=== PATIENT | female | born 1945 | race Caucasian/White ===

== ENCOUNTER 2017-04-30 09:26 | Emergency (ER) | payer MEDICARE, MEDICAID ==
[~2017-04-30] VITALS: Ht 160 cm; Wt 125.0 kg
[~2017-04-30 09:26] MED LIST: ASPI-496 PO; CHOL20003 PO; CRANBERRY PO; FLUO40CA2 PO; HYDR-3240 PO; LACT1CAP37 PO; LEVO100T5 PO; LISI-170 PO; LOSA1TAB16 PO; NITR100C56 PO; OMEP40CA6 PO; TRAZ100T15 PO; TRAZ50TA18 PO; TURM500C7 PO; VITA1TAB19 PO
[2017-04-30] MEDS ORDERED: [UNRECOGNIZED DRUG - CODE] PO (10:11)
[2017-04-30 11:51] VITALS: BP 133/46
== END 2017-04-30 12:07 | disposition home or self-care (01) ==
LOC: ED 10:19
DX: S42.202A Unspecified fracture of upper end of left humerus, initial encounter for closed fracture (principal); I10 Essential (primary) hypertension; Z90.49 Acquired absence of other specified parts of digestive tract; W18.30XA Fall on same level, unspecified, initial encounter; Y93.89 Activity, other specified; Y99.8 Other external cause status; Y92.410 Unspecified street and highway as the place of occurrence of the external cause

== ENCOUNTER 2017-11-30 21:32 | Inpatient (IN) | payer MEDICARE, MEDICAID ==
[~2017-11-30] VITALS: Ht 157.5 cm; Wt 124.1 kg
[~2017-11-30 21:32] MED LIST changes: +CHOL2000 PO; -CHOL20003 PO; +IBUP100O32 PO; -LOSA1TAB16 PO; +LOSA1TAB19 PO
[2017-11-30] MEDS ORDERED: MORPHINE SULFATE 4 MG/ML, 1ML IVPush PRN (22:30)
[2017-11-30] MEDS ORDERED: SODIUM CHLORIDE FLUSH 10ML SYR IVF ONE (22:30)
[2017-11-30] MEDS ORDERED: ONDANSETRON 2MG/ML, 2ML IVPush ONE (22:30)
[2017-11-30] MEDS ORDERED: ONDANSETRON 2MG/ML, 2ML ONE (22:33)
[2017-11-30] MEDS ORDERED: MORPHINE SULFATE 4 MG/ML, 1ML ONE (22:33)
[2017-11-30 22:42] LABS: MICROSCOPIC INDICATED
[2017-11-30 22:47] LABS: CULTURE INDICATED? NO
[2017-11-30 22:49] LABS: BASOPHILS # (AUTO) 0.07 x10^3/uL (0-0.1); BASOPHILS % (AUTO) 1 % (0-1); EOSINOPHILS # (AUTO) 0.04 x10^3/uL (0-0.4); EOSINOPHILS % (AUTO) 0 % (1-7); LYMPHOCYTES # (AUTO) 2.53 x10^3/uL (1-3.4); LYMPHOCYTES % (AUTO) 15 % (22-44); MD NO; MEAN CORPUSCULAR HEMOGLOBIN 27.7 pg (27.0-34.8); MEAN CORPUSCULAR HGB CONC 33.3 g/dL (32.4-35.8); MEAN CORPUSCULAR VOLUME 83.1 fL (80-100); MEAN PLATELET VOLUME 9.5 fL (7.4-10.4); MONOCYTES % (AUTO) 4 % (2-9); NEUTROPHILS # (AUTO) 13.38 x10^3/uL (1.8-6.8); NEUTROPHILS % (AUTO) 81 % (42-75); PLATELET COUNT 338 x10^3/uL (130-400); RED BLOOD COUNT 5.59 x10^6/uL (3.82-5.3)
[2017-11-30 23:01] LABS: ALANINE AMINOTRANSFERASE 23 U/L (12-78); ALBUMIN 3.5 g/dL (3.4-5.0); ANION GAP 10 mmol/L (5-15); CALCIUM 9.7 mg/dL (8.5-10.1); CHLORIDE 101 mmol/L (98-107)
[2017-11-30 23:04] LABS: ALKALINE PHOSPHATASE 85 U/L (45-117); BILIRUBIN,TOTAL 0.3 mg/dL (0.2-1.0)
[2017-11-30] MEDS ORDERED: OMNIPAQUE 350 MG/ML, 150 ML BOTTLE ONE (23:35)
[2017-12-01] MEDS ORDERED: TRAZ100T15 PO (00:54)
[2017-12-01] MEDS ORDERED: SODIUM CHLORIDE 0.9% 1,000 ML IV ONE (00:58)
[2017-12-01] MEDS ORDERED: MORPHINE SULFATE 4 MG/ML, 1ML IVPush PRN (01:00)
[2017-12-01] MEDS ORDERED: ONDANSETRON 2MG/ML, 2ML IVPush PRN (01:00)
[2017-12-01 02:12] VITALS: BP 105/67
[2017-12-01] MEDS ORDERED: ENALAPRILAT 1.25 MG/ML, 2ML IVPush PRN (03:30)
[2017-12-01] MEDS ORDERED: morphine SULFATE 10 MG/ML, 1ML IVPush PRN (03:30)
[2017-12-01] MEDS ORDERED: ONDANSETRON ODT 4 MG PO PRN (03:30)
[2017-12-01] MEDS ORDERED: OXYcodone IR 5MG TABLET PO PRN (03:30)
[2017-12-01] MEDS ORDERED: hydrALAzine 20 MG/ML, 1ML IVPush PRN (03:30)
[2017-12-01 04:34] LABS: MICROSCOPIC NOT IND
[2017-12-01 04:40] LABS: CULTURE INDICATED? NO
[2017-12-01 05:12] LABS: CHLORIDE 103 mmol/L (98-107)
[2017-12-01 05:13] LABS: BASOPHILS % (AUTO) 0 % (0-1); EOSINOPHILS % (AUTO) 0 % (1-7); LYMPHOCYTES % (AUTO) 4 % (22-44); MD NO; MEAN CORPUSCULAR HEMOGLOBIN 27.6 pg (27.0-34.8); MEAN CORPUSCULAR VOLUME 83.5 fL (80-100); MEAN PLATELET VOLUME 9.2 fL (7.4-10.4); MONOCYTES # (AUTO) 0.44 x10^3/uL (0.2-0.8); MONOCYTES % (AUTO) 3 % (2-9); NEUTROPHILS # (AUTO) 14.84 x10^3/uL (1.8-6.8); NEUTROPHILS % (AUTO) 93 % (42-75); PLATELET COUNT 304 x10^3/uL (130-400); RED BLOOD COUNT 5.16 x10^6/uL (3.82-5.3); RED CELL DISTRIBUTION WIDTH 15.1 % (9.6-15.2)
[2017-12-01 05:24] LABS: ALANINE AMINOTRANSFERASE 23 U/L (12-78); ALBUMIN 3.1 g/dL (3.4-5.0); ALKALINE PHOSPHATASE 73 U/L (45-117); ANION GAP 10 mmol/L (5-15); BILIRUBIN,TOTAL 0.4 mg/dL (0.2-1.0); CALCIUM 8.5 mg/dL (8.5-10.1); CHOL/HDL RATIO 2.6; CHOLESTEROL, TOTAL 183 mg/dL (140-239); CREATININE 0.89 mg/dL (0.55-1.02); FREE T4 (FREE THYROXINE) 1.28 ng/dL (0.76-1.46); HDL CHOL % 38 % (28-40); HDL CHOLESTEROL (DIRECT) 70 mg/dL (40-60); LDL CHOLESTEROL,CALCULATED 103 mg/dL (54-169); LDL/HDL RATIO 1.5 (0.5-3.0); TOTAL PROTEIN 6.7 g/dL (6.4-8.2); TRIGLYCERIDES 51 mg/dL (50-200); VLDL CHOLESTEROL 10 mg/dL (0-25)
[2017-12-01 05:45] LABS: HEMOGLOBIN A1C 5.9 % (4.2-6.3)
[2017-12-01] MEDS ORDERED: LEVOTHYROXINE 100 MCG TABLET PO SCH (06:00)
[2017-12-01 06:50] VITALS: BP 100/66
[2017-12-01] MEDS: D5%-0.9% NACL+KCL 20MEQ 1,000 ML IV SCH ×2 (08:47→18:03)
[2017-12-01] MEDS: LEVOTHYROXINE 100 MCG INJ IVPush SCH (08:47)
[2017-12-01] MEDS: OMEPRAZOLE 20 MG CAPSULE.DR PO SCH (08:49)
[2017-12-01] MEDS: MULTIVITS,STRESS FORMULA 1 TABLET PO SCH (08:49)
[2017-12-01] MEDS ORDERED: LOSARTAN 50MG TABLET PO SCH (09:00)
[2017-12-01] MEDS ORDERED: CHOLECALCIFEROL 1,000 UNIT TABLET PO SCH (09:00)
[2017-12-01] MEDS ORDERED: FLUOXETINE 20 MG CAPSULE PO SCH (09:00)
[2017-12-01] MEDS ORDERED: HYDROCHLOROTHIAZIDE 12.5 MG CAPSULE PO SCH (09:00)
[2017-12-01] MEDS ORDERED: ASPIRIN 81 MG TABLET EC PO SCH (09:00)
[2017-12-01] MEDS: ACETAMINOPHEN 325 MG TABLET PO PRN ×2 (11:47→19:11)
[2017-12-01 13:44] VITALS: BP 97/63
[2017-12-01 19:06] VITALS: BP 123/65
[2017-12-01] MEDS ORDERED: TRAZODONE 100MG TABLET PO SCH (21:00)
[2017-12-02 01:52] VITALS: BP 105/69
[2017-12-02] MEDS: D5%-0.9% NACL+KCL 20MEQ 1,000 ML IV SCH (03:39)
[2017-12-02 05:43] LABS: BASOPHILS # (AUTO) 0.02 x10^3/uL (0-0.1); BASOPHILS % (AUTO) 0 % (0-1); EOSINOPHILS # (AUTO) 0.17 x10^3/uL (0-0.4); EOSINOPHILS % (AUTO) 3 % (1-7); LYMPHOCYTES # (AUTO) 2.84 x10^3/uL (1-3.4); LYMPHOCYTES % (AUTO) 44 % (22-44); MD NO; MEAN CORPUSCULAR HEMOGLOBIN 27.5 pg (27.0-34.8); MEAN CORPUSCULAR HGB CONC 32.9 g/dL (32.4-35.8); MEAN CORPUSCULAR VOLUME 83.7 fL (80-100); MEAN PLATELET VOLUME 8.7 fL (7.4-10.4); MONOCYTES # (AUTO) 0.43 x10^3/uL (0.2-0.8); MONOCYTES % (AUTO) 7 % (2-9); NEUTROPHILS # (AUTO) 2.94 x10^3/uL (1.8-6.8); NEUTROPHILS % (AUTO) 46 % (42-75); PLATELET COUNT 257 x10^3/uL (130-400); RED BLOOD COUNT 4.24 x10^6/uL (3.82-5.3); RED CELL DISTRIBUTION WIDTH 15.1 % (9.6-15.2)
[2017-12-02 05:53] LABS: ANION GAP 5 mmol/L (5-15); CALCIUM 7.6 mg/dL (8.5-10.1); CHLORIDE 110 mmol/L (98-107)
[2017-12-02 08:08] VITALS: BP 103/52
[2017-12-02] MEDS: OMEPRAZOLE 20 MG CAPSULE.DR PO SCH (08:23)
[2017-12-02] MEDS: MULTIVITS,STRESS FORMULA 1 TABLET PO SCH (08:24)
[2017-12-02] MEDS: LEVOTHYROXINE 100 MCG INJ IVPush SCH (08:24)
[2017-12-02] MEDS ORDERED: SENN1TAB7 PO (13:24)
[2017-12-02 15:00] VITALS: BP 113/73
== END 2017-12-02 15:30 | disposition home or self-care (01) | DRG 388 ==
LOC: ED 23:46 → EDIP 12-01 00:58 → 4NOR 12-01 01:09
PROVIDERS: ADMIT Internal Medicine; ATTEND Internal Medicine
DX: K56.51 Intestinal adhesions [bands], with partial obstruction (principal); N17.0 Acute kidney failure with tubular necrosis; Z68.43 Body mass index [BMI] 50.0-59.9, adult; K56.7 Ileus, unspecified; Z88.0 Allergy status to penicillin; Z88.2 Allergy status to sulfonamides; Z88.8 Allergy status to other drugs, medicaments and biological substances; D72.829 Elevated white blood cell count, unspecified; E03.9 Hypothyroidism, unspecified; E66.9 Obesity, unspecified; F32.9 Major depressive disorder, single episode, unspecified; I10 Essential (primary) hypertension; K43.2 Incisional hernia without obstruction or gangrene; M47.9 Spondylosis, unspecified; Z96.611 Presence of right artificial shoulder joint; Z96.659 Presence of unspecified artificial knee joint; Z98.84 Bariatric surgery status
CPT/HCPCS: 36415; 74021; 74177; 80048; 80053; 80061; 81001; 81003; 83036; 83690; 83735; 84100; 84439; 84443; 85025; 93005; 96374; 96375; J2405; Q9967; J3480; J7030

== ENCOUNTER 2018-05-28 17:06 | Emergency (ER) | payer MEDICARE, MEDICAID ==
[~2018-05-28] VITALS: Ht 157.5 cm; Wt 124.5 kg
[~2018-05-28 17:06] MED LIST changes: +SENN1TAB7 PO
[2018-05-28 17:08] VITALS: BP 151/81
[2018-05-28] MEDS ORDERED: HYDROcodone/APAP 5/325 TABLET PO ONE (18:00)
[2018-05-28] MEDS ORDERED: HYDROcodone/APAP 5/325 TABLET ONE (18:04)
== END 2018-05-28 18:43 | disposition home or self-care (01) ==
LOC: ED 18:01
DX: N30.00 Acute cystitis without hematuria (principal); I10 Essential (primary) hypertension; Z90.49 Acquired absence of other specified parts of digestive tract
CPT/HCPCS: 99283

== ENCOUNTER 2018-08-06 13:31 | Emergency (ER) | payer MEDICARE, MEDICAID ==
[~2018-08-06] VITALS: Ht 157.5 cm; Wt 123.2 kg
[~2018-08-06 13:31] MED LIST changes: -SENN1TAB7 PO; +SENN1TAB8 PO; +TRAZ-136 PO; +TRAZ-137 PO; -TRAZ100T15 PO; -TRAZ50TA18 PO
[2018-08-06 13:49] VITALS: BP 133/80
[2018-08-06] MEDS ORDERED: PHENAZOPYRIDINE 200 MG TABLET PO ONE (14:00)
[2018-08-06 14:25] LABS: BASOPHILS # (AUTO) 0.05 x10^3/uL (0-0.1); BASOPHILS % (AUTO) 1 % (0-1); EOSINOPHILS % (AUTO) 0 % (1-7); LYMPHOCYTES # (AUTO) 2.21 x10^3/uL (1-3.4); LYMPHOCYTES % (AUTO) 28 % (22-44); MD NO; MEAN CORPUSCULAR HEMOGLOBIN 28.3 pg (27.0-34.8); MEAN CORPUSCULAR HGB CONC 32.8 g/dL (32.4-35.8); MEAN CORPUSCULAR VOLUME 86.1 fL (80-100); MEAN PLATELET VOLUME 8.7 fL (7.4-10.4); MONOCYTES % (AUTO) 5 % (2-9); NEUTROPHILS # (AUTO) 5.38 x10^3/uL (1.8-6.8); NEUTROPHILS % (AUTO) 67 % (42-75); PLATELET COUNT 349 x10^3/uL (130-400); RED BLOOD COUNT 4.97 x10^6/uL (3.82-5.3); RED CELL DISTRIBUTION WIDTH 13.9 % (9.6-15.2)
[2018-08-06] MEDS ORDERED: PHENAZOPYRIDINE 200 MG TABLET ONE (14:28)
[2018-08-06 14:33] LABS: ALBUMIN 3.5 g/dL (3.4-5.0); ANION GAP 9 mmol/L (5-15); CALCIUM 8.3 mg/dL (8.5-10.1); CHLORIDE 95 mmol/L (98-107)
[2018-08-06 14:38] LABS: ALANINE AMINOTRANSFERASE 26 U/L (12-78); ALKALINE PHOSPHATASE 76 U/L (45-117); BILIRUBIN,TOTAL 0.3 mg/dL (0.2-1.0); CREATININE 0.89 mg/dL (0.55-1.02); TOTAL PROTEIN 7.2 g/dL (6.4-8.2)
[2018-08-06 15:02] LABS: CULTURE INDICATED? YES; MICROSCOPIC INDICATED
== END 2018-08-06 15:39 | disposition home or self-care (01) ==
LOC: ED 15:19
DX: N30.00 Acute cystitis without hematuria (principal); I10 Essential (primary) hypertension; Z87.891 Personal history of nicotine dependence; Z90.49 Acquired absence of other specified parts of digestive tract; Z88.0 Allergy status to penicillin; Z88.1 Allergy status to other antibiotic agents; Z88.2 Allergy status to sulfonamides
CPT/HCPCS: 36415; 80053; 81001; 85025; 87077; 87086; 87186; 99284

== ENCOUNTER → 2018-10-05 | Outpatient (CLI) | payer MEDICARE, MEDICAID ==
[~2018-10-05] MED LIST changes: +HYDR12.53 PO
[2018-10-05 14:33] LABS: ALANINE AMINOTRANSFERASE 17 U/L (12-78); ALBUMIN 3.2 g/dL (3.4-5.0); ANION GAP 9 mmol/L (5-15); CALCIUM 8.4 mg/dL (8.5-10.1); CHLORIDE 101 mmol/L (98-107); CREATININE 0.93 mg/dL (0.55-1.02)
[2018-10-05 14:36] LABS: ALKALINE PHOSPHATASE 66 U/L (45-117); BILIRUBIN,TOTAL 0.4 mg/dL (0.2-1.0); TOTAL PROTEIN 6.9 g/dL (6.4-8.2)
== END | disposition home or self-care (01) ==
LOC: STAR 13:23
PROVIDERS: ATTEND Internal Medicine
DX: Z01.818 Encounter for other preprocedural examination (principal); Z12.11 Encounter for screening for malignant neoplasm of colon; K21.9 Gastro-esophageal reflux disease without esophagitis; Z88.0 Allergy status to penicillin; Z88.2 Allergy status to sulfonamides
CPT/HCPCS: 36415; 80053; 93005

== ENCOUNTER 2018-10-11 09:41 | Day surgery (SDC) | payer MEDICARE, MEDICAID ==
[~2018-10-11] VITALS: Ht 160 cm; Wt 118.0 kg
[2018-10-11] MEDS ORDERED: LACTATED RINGERS 1,000 ML IV SCH (10:21)
[2018-10-11 10:23] VITALS: BP 106/75
[2018-10-11] MEDS ORDERED: LIDOCAINE-MPF 1%, 2ML INFIL ONE (10:30)
[2018-10-11] MEDS ORDERED: PROPOFOL 10 MG/ML, 20ML ONE (13:35)
== END 2018-10-11 15:40 | disposition home or self-care (01) ==
LOC: OUT 09:41
PROVIDERS: ATTEND Internal Medicine
DX: Z12.11 Encounter for screening for malignant neoplasm of colon (principal); K57.30 Diverticulosis of large intestine without perforation or abscess without bleeding; K21.0 Gastro-esophageal reflux disease with esophagitis; K64.1 Second degree hemorrhoids; I10 Essential (primary) hypertension; E03.9 Hypothyroidism, unspecified; Z88.0 Allergy status to penicillin; Z88.2 Allergy status to sulfonamides; Z79.899 Other long term (current) drug therapy; Z88.8 Allergy status to other drugs, medicaments and biological substances; Z98.0 Intestinal bypass and anastomosis status; Z90.49 Acquired absence of other specified parts of digestive tract; Z98.84 Bariatric surgery status; Z98.890 Other specified postprocedural states
CPT/HCPCS: 43235; G0121; J2704; J7120

== ENCOUNTER 2019-04-15 12:41 | Emergency (ER) | payer MEDICARE, MEDICAID ==
[~2019-04-15] VITALS: Ht 160 cm; Wt 120.9 kg
[~2019-04-15 12:41] MED LIST changes: +HYDR12.517 PO; -HYDR12.53 PO; +SENN-177 PO; -SENN1TAB8 PO; -TRAZ-136 PO; +TRAZ50TA66 PO
--- NOTE | 2019-04-15 12:55 | NUR ---
ekg performed in triage
[2019-04-15 13:26] LABS: BASOPHILS # (AUTO) 0.04 x10^3/uL (0-0.1); BASOPHILS % (AUTO) 1 % (0-1); EOSINOPHILS # (AUTO) 0.03 x10^3/uL (0-0.4); EOSINOPHILS % (AUTO) 0 % (1-7); LYMPHOCYTES # (AUTO) 1.72 x10^3/uL (1-3.4); LYMPHOCYTES % (AUTO) 26 % (22-44); MD NO; MEAN CORPUSCULAR HEMOGLOBIN 28.2 pg (27.0-34.8); MEAN CORPUSCULAR HGB CONC 32.3 g/dL (32.4-35.8); MEAN CORPUSCULAR VOLUME 87.1 fL (80-100); MEAN PLATELET VOLUME 8.8 fL (7.4-10.4); MONOCYTES # (AUTO) 0.34 x10^3/uL (0.2-0.8); MONOCYTES % (AUTO) 5 % (2-9); NEUTROPHILS # (AUTO) 4.48 x10^3/uL (1.8-6.8); NEUTROPHILS % (AUTO) 68 % (42-75); PLATELET COUNT 286 x10^3/uL (130-400); RED BLOOD COUNT 4.94 x10^6/uL (3.82-5.3); RED CELL DISTRIBUTION WIDTH 15.6 % (9.6-15.2)
[2019-04-15 13:36] LABS: ALBUMIN 3.5 g/dL (3.4-5.0); ANION GAP 6 mmol/L (5-15); CALCIUM 8.3 mg/dL (8.5-10.1); CHLORIDE 100 mmol/L (98-107)
[2019-04-15 13:42] LABS: ALANINE AMINOTRANSFERASE 19 U/L (12-78); ALKALINE PHOSPHATASE 73 U/L (45-117); BILIRUBIN,TOTAL 0.3 mg/dL (0.2-1.0); CREATININE 1.01 mg/dL (0.55-1.02); TROPONIN I < 0.015 ng/mL (0.000-0.045)
--- NOTE | 2019-04-15 14:15 | NUR ---
74 YEAR OLD WOMAN PRESENTS WITH C/O OF LEFT EAR PAIN AND DIZZINESS X 3 DAYS. DENIES N/V/D OR FEVERS. STEADY ON FEET, VS STABLE. PT DENIES PAIN. ISACC, SO, AT BEDSIDE.
--- NOTE | 2019-04-15 14:17 | NUR ---
Break RN: Report from Lissette MERCEDES, pt reports episode of feeling dizzy today, denies syncope. Pt on cont cardiac and pulse ox monitoring, denies needs/concerns
[2019-04-15 15:34] VITALS: BP 130/57
--- NOTE | 2019-04-15 15:35 | NUR ---
PT STATES, "I'M READY TO GET OUT OF HERE".
== END 2019-04-15 15:53 | disposition home or self-care (01) ==
LOC: ED 14:36
DX: H81.392 Other peripheral vertigo, left ear (principal); H83.02 Labyrinthitis, left ear; I10 Essential (primary) hypertension
CPT/HCPCS: 36415; 71046; 80053; 83880; 84484; 85025; 93005; 99284

== ENCOUNTER 2021-06-18 22:15 | Emergency (ER) | payer MEDICARE, MEDICAID ==
[~2021-06-18] VITALS: Ht 160 cm; Wt 102.4 kg
[~2021-06-18 22:15] MED LIST changes: +HYDR-2214 PO; -HYDR-3240 PO; -LACT1CAP37 PO; +LACT1CAP47 PO; -OMEP40CA6 PO; +OMEP40CA8 PO; -TRAZ-137 PO; +TRAZ-175 PO; +VITAMIN B12; +VITAMIN D
--- NOTE | 2021-06-18 22:30 | NUR ---
INITIAL PT CONTACT. PT PRESENTS TO ED C/O DIARRHEA X 3 DAYS. DENIES ANY ABD PAIN AT THIS TIME, "IT COMES AND GOES THOUGH." PT DENIES ANY URINARY SYMPTOMS, NO N/V. PT SITTING UPRIGHT ON JEREMY YEN VSS. PT PLACED ON CONTINUOUS MONITORING. CALL LIGHT AND BELONGINGS WITHIN REACH. SPOUSE AT BEDSIDE. AWAITING ERP.
--- NOTE | 2021-06-18 22:36 | NUR ---
PT AMBULATORY WITH ASSISTANCE TO BATHROOM.
[2021-06-18] MEDS ORDERED: ONDANSETRON 2MG/ML, 2ML ONE (22:47)
[2021-06-18] MEDS ORDERED: MORPHINE SULFATE 4 MG/ML, 1ML ONE (22:47)
[2021-06-18] MEDS ORDERED: MAALOX/HYOSCYAMINE/LIDOCAINE 45 ML BTL ONE (22:51)
[2021-06-18] MEDS ORDERED: ONDANSETRON 2MG/ML, 2ML IVPush ONE (23:00)
[2021-06-18] MEDS ORDERED: SODIUM CHLORIDE FLUSH 10ML SYR IVF ONE (23:00)
[2021-06-18] MEDS ORDERED: MAALOX/HYOSCYAMINE/LIDOCAINE 45 ML BTL PO ONE (23:00)
[2021-06-18] MEDS ORDERED: MORPHINE SULFATE 4 MG/ML, 1ML IVPush PRN (23:00)
[2021-06-18 23:11] LABS: BASOPHILS % (AUTO) 1 % (0-1); EOSINOPHILS % (AUTO) 1 % (1-7); LYMPHOCYTES % (AUTO) 21 % (22-44); MEAN CORPUSCULAR HEMOGLOBIN 30.6 pg (27.0-34.8); MEAN CORPUSCULAR HGB CONC 34.2 g/dL (32.4-35.8); MEAN PLATELET VOLUME 8.5 fL (7.4-10.4); MONOCYTES % (AUTO) 6 % (2-9); NEUTROPHILS % (AUTO) 72 % (42-75); PLATELET COUNT 290 x10^3/uL (130-400); RED BLOOD COUNT 4.99 x10^6/uL (3.82-5.3); RED CELL DISTRIBUTION WIDTH 13.9 % (9.6-15.2)
[2021-06-18 23:12] LABS: MICROSCOPIC INDICATED
[2021-06-18 23:16] LABS: ALANINE AMINOTRANSFERASE 20 U/L (12-78); ALBUMIN 3.2 g/dL (3.4-5.0); ANION GAP 7 mmol/L (5-15); CALCIUM 8.4 mg/dL (8.5-10.1); CHLORIDE 103 mmol/L (98-107)
[2021-06-18 23:18] LABS: ALKALINE PHOSPHATASE 70 U/L (45-117); BILIRUBIN,TOTAL 0.4 mg/dL (0.2-1.0); TOTAL PROTEIN 6.9 g/dL (6.4-8.2)
--- NOTE | 2021-06-19 00:19 | NUR ---
PT TO CT
[2021-06-19] MEDS ORDERED: OMNIPAQUE 350 MG/ML, 100ML BOTTLE ONE (00:44)
[2021-06-19 01:35] VITALS: BP 117/75
== END 2021-06-19 01:46 | disposition home or self-care (01) ==
LOC: ED 22:45
DX: K52.9 Noninfective gastroenteritis and colitis, unspecified (principal); K56.0 Paralytic ileus; N39.0 Urinary tract infection, site not specified; I10 Essential (primary) hypertension; E03.9 Hypothyroidism, unspecified; Z90.49 Acquired absence of other specified parts of digestive tract
CPT/HCPCS: 36415; 74177; 80053; 81001; 83690; 85025; 87077; 87086; 87186; 99285; Q9967